=== PATIENT | male | born 1945 | race Caucasian/White ===

== ENCOUNTER 2016-07-18 07:07 | Emergency (ER) | payer OTHER ==
[~2016-07-18] VITALS: Ht 172.7 cm; Wt 93.5 kg
[~2016-07-18 07:07] MED LIST: ADVAIR 250/501 DISK IH; ADVAIR 500/501 DISK IH; B COMPLETE1 EACH PO; CALCIUM 600 +1 EAC9 PO; CELEXA40 MG PO; LO-DOSE ASPIRIN81 M1 PO; MEVACOR10 MG PO; NORCO 5/3251 TABLET PO
[2016-07-18 08:41] LABS: ADD MIUA? NO; BILIRUBIN NEGATIVE; BLOOD NEGATIVE; COLOR YELLOW ((YELLOW)); GLUCOSE (STRIP) NEGATIVE; KETONES NEGATIVE; LEUKOCYTES NEGATIVE; NITRITE NEGATIVE; PROTEIN (STRIP) NEGATIVE; SPECIFIC GRAVITY 1.014 (1.000-1.030); UROBILINOGEN 0.2 MG/DL (0.2-1.0)
[2016-07-18 08:49] LABS: HEMATOCRIT 43.2 % (38.0-50.0); MCH 29.4 PG (29.0-34.0); MCHC 33.3 G/DL (30.0-36.0); MCV 88.2 FL (86-99); MEAN PLAT.VOLUME 11.2 uM^3 (9.0-12.4); PLATELET COUNT 247 K/uL (156-360); RBC DIS.WIDTH-CV 13.1 % (11.8-14.6); RBC DIS.WIDTH-SD 42.5 % (39-53); WHITE BLOOD COUNT 7.1 K/uL (4.1-10.2)
[2016-07-18 10:48] LABS: CHLORIDE 109 mEq/L (99-109); SODIUM 139 mEq/L (136-147)
[2016-07-18 10:50] LABS: GLUCOSE 90 mg/dL (70-99)
[2016-07-18 10:51] LABS: ANION GAP 5 MEQ/L (2-14)
[2016-07-18 10:52] LABS: TOTAL BILIRUBIN 0.5 mg/dL (0.0-1.0)
[2016-07-18 10:53] LABS: ALKALINE PHOSPHATASE 47 IU/L (3-129)
[2016-07-18 10:54] LABS: GFR ESTIMATE (CALCULATED) > 59 mL/min/
[2016-07-18 10:55] LABS: UREA NITROGEN (BUN) 13 mg/dL (9-23)
[2016-07-18 10:56] LABS: TROP-I INTERPRETATION NEGATIVE; TROPONIN-I < 0.01 ng/mL (0.0-0.30)
[2016-07-18 10:57] LABS: LIPASE 117 U/L (1.0-51.0)
[2016-07-18] MEDS ORDERED: COLACE100 MG PO (12:19)
[2016-07-18 13:34] LABS: TROP-I INTERPRETATION NEGATIVE; TROPONIN-I < 0.01 ng/mL (0.0-0.30)
[2016-07-18 13:58] VITALS: BP 109/51
== END 2016-07-18 14:01 | disposition home or self-care (01) ==
LOC: EME 07:07
PROVIDERS: Nurse Practitioner Family
DX: K80.20 Calculus of gallbladder without cholecystitis without obstruction (principal); K59.00 Constipation, unspecified; J44.9 Chronic obstructive pulmonary disease, unspecified; J45.909 Unspecified asthma, uncomplicated; F32.9 Major depressive disorder, single episode, unspecified; Z88.0 Allergy status to penicillin; Z87.891 Personal history of nicotine dependence
CPT/HCPCS: 71020; 74177; 80053; 81003; 83690; 84484; 85027; 93005; 99281; 99285; J7030

== ENCOUNTER 2016-08-15 09:42 | Day surgery (SDC) | payer OTHER ==
[~2016-08-15] VITALS: Ht 172.7 cm; Wt 93.0 kg
[~2016-08-15 09:42] MED LIST changes: +COLACE100 MG PO
[2016-08-15 10:33] VITALS: BP 103/65
[2016-08-15] MEDS ORDERED: NORCO 5/3251 TABLET PO (12:42)
[2016-08-15 14:00] VITALS: BP 109/70
[2016-08-15 15:17] VITALS: BP 116/72
== END 2016-08-15 15:20 | disposition home or self-care (01) ==
LOC: SDC 09:42
PROC: 0FT44ZZ Resection of Gallbladder, Percutaneous Endoscopic Approach (ICD-10-PCS; principal; 2016-08-15)
DX: K80.10 Calculus of gallbladder with chronic cholecystitis without obstruction (principal); J44.9 Chronic obstructive pulmonary disease, unspecified; Z98.61 Coronary angioplasty status; K21.9 Gastro-esophageal reflux disease without esophagitis; K92.1 Melena; E78.5 Hyperlipidemia, unspecified; G47.30 Sleep apnea, unspecified; Z87.891 Personal history of nicotine dependence; Z88.0 Allergy status to penicillin; Z79.82 Long term (current) use of aspirin
CPT/HCPCS: 88304; J0131; J1100; J1170; J1580; J2405; J2710; J3010; J7050; S0030